=== PATIENT | male | born 1945 | race Caucasian/White ===

== ENCOUNTER 2017-08-23 19:42 | Emergency (ER) | payer MEDICARE, BC ==
[2017-08-23] MEDS ORDERED: cloNIDine 0.1 MG Tab PO ONE (19:54)
[2017-08-23] MEDS ORDERED: cloNIDine 0.1 MG Tab ONE (19:57)
--- NOTE | 2017-08-23 20:04 | EDM.PDOC ---
ED HPI GENERAL MEDICAL PROBLEM - General Chief Complaint: ENT Problem Stated Complaint: NOSEBLEED Time Seen by Provider: 08/23/17 19:42 Source of Information: Reports: Patient, Family History Limitations: Reports: No Limitations - History of Present Illness INITIAL COMMENTS - FREE TEXT/NARRATIVE: This is a 72-year-old male. Onset of nasal bleed about an hour prior to coming to the ER. The right sided bleed and no left-sided bleeding noted. He also has a history of elevated blood pressure and presently the blood pressure is elevated. He has had a history of nosebleeds very infrequently. He is not really certain why the nose started bleeding this evening but he wasn't doing anything rambunctious he did not hit his nose. He's been doing fine otherwise no recent illnesses no colds no cough no nausea no vomiting. - Related Data Allergies Allergy/AdvReac Type Severity Reaction Status Date / Time latex Allergy Severe unknown Verified 08/23/17 19:57 anesthesia Allergy Severe unknown Uncoded 12/25/13 21:45 bandaids Allergy Severe unknown Uncoded 12/25/13 21:45 Home Meds: Home Meds Carvedilol [Coreg] 25 mg PO BID 08/23/17 [History] Gemfibrozil [Lopid] 600 mg PO DAILY 08/23/17 [History] Hydrochlorothiazide/Losartan [Hyzaar 100-25 MG] 1 tab PO DAILY 08/23/17 [History ] Social & Family History - Recreational Drug Use Recreational Drug Use: No ED ROS ENT - Review of Systems Review Of Systems: See Below Constitutional: Denies: Fever, Chills HEENT: Reports: Nosebleed, Other (As per history of present illness). Denies: Rhinitis, Sinus Problem, Throat Pain, Throat Swelling Respiratory: Reports: No Symptoms Cardiovascular: Reports: No Symptoms Endocrine: Reports: No Symptoms GI/Abdominal: Reports: No Symptoms : Reports: No Symptoms Musculoskeletal: Reports: No Symptoms Skin: Reports: No Symptoms Neurological: Reports: No Symptoms Psychiatric: Reports: No Symptoms Hematologic/Lymphatic: Reports: No Symptoms ED EXAM, ENT - Physical Exam Exam: See Below Exam Limited By: No Limitations General Appearance: Alert, WD/WN, No Apparent Distress Eye Exam: Bilateral Eye: Normal Inspection Ears: Normal External Exam Nose: Active Bleeding, Other (Active bleeding in the right nasal passage, it appears to become more anterior than posterior, there is absolutely no blood on the left nasal passage.) Mouth/Throat: Normal Inspection, Normal Gums, Normal Lips, Other (Slight ooze posterior pharynx noted as far as blood from the nose) Head: Normocephalic Neck: Supple Respiratory/Chest: No Respiratory Distress Back: Full Range of Motion Extremities: Normal Inspection, Normal Range of Motion Neurological: Alert, Oriented Psychiatric: Normal Affect, Normal Mood Skin: Warm, Dry ED ENT PROCEDURES - Epistaxis Procedure Indication: Epistaxis, Controlled Recent anticoagulants/antiplatlets: No Uncontrolled HTN: Yes Recent septal/nasal surgery: No Site of bleeding: Right Nare, Anterior Clearing of clots: Patient Blew Nose Topical Meds: Topical Cocaine Ice pack to area: No Anterior Packing: Other (7.5 cm Rhino Rocket) Electrical cautery: Other (Bleeding area is not visualized) Complications: No (I have watched him now for about 30 minutes and I increased the balloon pressure several times there is good hemostasis noted and the patient is ready to go home.) Course - Vital Signs Last Recorded V/S: Last Vital Signs Temp 98.1 F 08/23/17 19:55 Pulse 66 08/23/17 19:55 Resp 18 08/23/17 19:55 BP 185/82 H 08/23/17 20:00 Pulse Ox 100 08/23/17 19:55 - Orders/Labs/Meds Meds: Medications Discontinued Medications Generic Name Dose Route Start Last Admin Trade Name Freq PRN Reason Stop Dose Admin Clonidine HCl Confirm 08/23/17 19:57 08/23/17 20:00 Catapres Administered 08/23/17 19:58 Not Given Dose 0.2 mg .ROUTE .STK-MED ONE Clonidine HCl 0.2 mg 08/23/17 19:54 08/23/17 19:58 Catapres PO 08/23/17 19:55 0.2 mg ONETIME ONE Administration Cocaine HCl Confirm 08/23/17 19:57 08/23/17 20:00 Cocaine Hcl Administered 08/23/17 19:58 Not Given Dose 4 ml .ROUTE .STK-MED ONE Cocaine HCl 4 ml 08/23/17 19:59 08/23/17 19:59 Cocaine Hcl TOP 08/23/17 20:00 4 ml ONETIME ONE Administration - Re-Assessments/Exams Free Text/Narrative Re-Assessment/Exam: 08/23/17 20:52 I spoke to the patient at length about leaving the Rhino Rocket in his nose for the next 24-36 hours. If he wants to come back tomorrow evening to get it taken out a thought that would be okay but he have to come to the ER otherwise follow- up with his family doctor on Friday and have him take out the Rhino Rocket. If there is any problems in between time or he starts bleeding despite the Rhino Rocket he is to return to the ER Departure - Departure Time of Disposition: 20:52 Disposition: Home, Self-Care 01 Condition: Good Clinical Impression: Epistaxis - Discharge Information Referrals: Mk Weber MD [Primary Care Provider] - Forms: ED Department Discharge Additional Instructions: Leave the Rhino Rocket alone, it might drip a little bit out the front but it shouldn't be a steady drip and there should be no posterior dripping of blood, if you notice that the Rhino Rocket is getting loose or you are having bleeding again return to the ER, otherwise follow up with the ER tomorrow evening for removal or see Dr. Nash on Friday morning for removal of the Rhino Rocket, return to the ER as needed
== END 2017-08-23 21:03 | disposition home or self-care (01) ==
LOC: JD.ED 19:42
DX: R04.0 Epistaxis (principal); Z91.040 Latex allergy status; Z79.899 Other long term (current) drug therapy; Z88.8 Allergy status to other drugs, medicaments and biological substances
CPT/HCPCS: 30903; 99283-25; A9270-GY